=== PATIENT | female | born 1965 | race Caucasian/White ===

== ENCOUNTER 2019-06-19 07:37 | Outpatient (CLI) | payer OTHER ==
[~2019-06-19 07:37] MED LIST: SYNTHROID75 MCG
== END 2019-06-19 08:41 | disposition home or self-care (01) ==
LOC: SONOGRAMA 07:37
DX: E04.2 Nontoxic multinodular goiter (principal)

== ENCOUNTER 2019-11-14 22:44 | Emergency (ER) | payer OTHER ==
[~2019-11-14] VITALS: Ht 162.6 cm; Wt 88.9 kg
[2019-11-15] MEDS ORDERED: KEFLEX500 MG PO (04:26)
[2019-11-15] MEDS ORDERED: KETO10TA2 PO (04:26)
== END 2019-11-15 04:40 | disposition home or self-care (01) ==
LOC: ER 22:44
DX: N20.0 Calculus of kidney (principal); K57.30 Diverticulosis of large intestine without perforation or abscess without bleeding; R10.11 Right upper quadrant pain; R10.31 Right lower quadrant pain

== ENCOUNTER 2019-11-24 02:23 | Emergency (ER) | payer OTHER ==
[~2019-11-24] VITALS: Ht 162.6 cm; Wt 88.9 kg
[~2019-11-24 02:23] MED LIST changes: +KEFLEX500 MG PO; +KETO10TA2 PO
== END 2019-11-24 11:11 | disposition home or self-care (01) ==
LOC: ER 02:23
DX: N20.0 Calculus of kidney (principal); K57.30 Diverticulosis of large intestine without perforation or abscess without bleeding; R10.84 Generalized abdominal pain